=== PATIENT | female | born 1980 | race Caucasian/White ===

== ENCOUNTER 2017-10-06 00:55 | Emergency (ER) | payer BC ==
[~2017-10-06] VITALS: Ht 162.6 cm; Wt 72.6 kg
[2017-10-06] MEDS ORDERED: MEDROL8 MG PO (04:30)
[2017-10-06] MEDS ORDERED: SUDAFED 12 HOU120 MG PO (04:30)
[2017-10-06] MEDS ORDERED: KETO10TA2 PO (04:30)
== END 2017-10-06 04:40 | disposition home or self-care (01) ==
LOC: ER 00:55
DX: H66.91 Otitis media, unspecified, right ear (principal)